=== PATIENT | female | born 1990 | race Hispanic/Latino ===

== ENCOUNTER 2017-12-26 08:41 | Emergency (ER) | payer OTHER | END 2017-12-26 10:06 | disposition home or self-care (01) | LOC: EDH 08:41 | DX: J10.1 Influenza due to other identified influenza virus with other respiratory manifestations (principal); F41.9 Anxiety disorder, unspecified ==

== ENCOUNTER 2023-06-23 22:55 | Inpatient (IN) | payer OTHER ==
[~2023-06-23] VITALS: Ht 157.5 cm; Wt 91.2 kg
[2023-06-23 23:38] LABS: BASOPHILS # (AUTO) 0.03 K/uL (0.00-0.20); BASOPHILS % (AUTO) 0.2 % (0.0-5.0); EOSINOPHILS # (AUTO) 0.01 K/uL (0.00-0.70); EOSINOPHILS % (AUTO) 0.1 % (0.0-8.0); HEMATOCRIT 37.2 % (36-48); IMMATURE GRANULOCYTE ABSOLUTE 0.12 K/uL (0-1); LYMPHOCYTES # (AUTO) 1.7 K/uL (1.0-4.8); LYMPHOCYTES % (AUTO) 11.3 % (21.0-51.0); MEAN CORPUSCULAR HEMOGLOBIN 31.1 pg (27.0-33.0); MEAN CORPUSCULAR HGB CONC 35.2 g/dL (32.0-36.0); MEAN CORPUSCULAR VOLUME 88.4 fL (79-99); MONOCYTES # (AUTO) 1.1 K/uL (0.1-1.0); MONOCYTES % (AUTO) 7.2 % (3.0-13.0); NEUTROPHILS # (AUTO) 11.9 K/uL (1.8-7.7); NEUTROPHILS % (AUTO) 80.4 % (40.0-77.0); PLATELET COUNT (AUTO) 302 K/uL (130-400); RED BLOOD CELL COUNT(AUTO) 4.21 MIL/uL (4.00-5.50); RED CELL DISTRIBUTION WIDTH 12.8 % (11.0-15.5); WHITE BLOOD COUNT (AUTO) 14.8 K/uL (4.8-10.8)
[2023-06-23 23:58] LABS: ALBUMIN 3.4 g/dL (3.5-5.0); BILIRUBIN,TOTAL 0.9 mg/dL (0.2-1.0); CREATININE 0.9 mg/dL (0.5-1.0); TOTAL PROTEIN, SERUM 6.4 g/dL (6.0-8.3)
[2023-06-24] VITALS (13 sets, daily range): BP systolic 109–152; BP diastolic 51–93; PULSE 52–75; RESP 12–24; O2SAT 98
[2023-06-24 00:08] LABS: POTASSIUM 2.9 mmol/L (3.5-5.1)
[2023-06-24] MEDS: POTASSIUM BICARB/CIT AC 25 MEQ TABLET.EFF PO ONE (01:07)
[2023-06-24] MEDS: FENTANYL CITRATE PF 50 MCG/1 ML 2ML VIAL IVP ONE (01:07)
[2023-06-24] MEDS: DICYCLOMINE 20MG (10MG/ML) AMP IM ONE (01:08)
[2023-06-24] MEDS: HALOPERIDOL INJ 5 MG/ML VIAL IM SCH (02:16)
[2023-06-24] MEDS ORDERED: HYDRALAZINE 20MG/ML VIAL IV PRN (03:00)
[2023-06-24] MEDS: LACTATED RINGERS 1000ML 1,000 ML IV SCH ×2 (03:18→10:00)
[2023-06-24] MEDS: ONDANSETRON 4MG INJ IVP ONE (03:18)
[2023-06-24 03:23] LABS: APPEARANCE,URINE CLOUDY (CLEAR); BILIRUBIN,URINE NEGATIVE (NEGATIVE); COLOR,URINE LIGHT-YELLOW (YELLOW); GLUCOSE, URINE (UA) NEGATIVE (NEGATIVE); KETONES,URINE 60 mg/dL (NEGATIVE); LEUKOCYTE ESTERASE ,URINE 500 Leu/uL (NEGATIVE); NITRATE,URINE NEGATIVE (NEGATIVE); PH,URINE 7.5 (5.0-8.0); PROTEIN,URINE NEGATIVE (NEGATIVE); UROBILINOGEN,URINE 0.2 mg/dL (0.2-1.0)
[2023-06-24 03:25] LABS: ADD UA MICROSCOPIC YES
[2023-06-24 03:26] LABS: BACTERIA,URINE MOD /HPF (None Seen); MUCUS,URINE RARE LPF (None Seen); SQUAMOUS EPITHELIAL CELL,UR MOD /HPF (0-2)
[2023-06-24 03:28] LABS: HCG,QUALITATIVE URINE NEGATIVE (NEGATIVE)
[2023-06-24 03:32] LABS: AMPHET/METH SCREEN,URINE NEGATIVE (NEGATIVE); BARBITURATE SCREEN, URINE NEGATIVE (NEGATIVE); BENZODIAZEPINES SCREEN,URINE POSITIVE (NEGATIVE); CANNABINOID SCREEN,URINE POSITIVE (NEGATIVE); COCAINE SCREEN,URINE POSITIVE (NEGATIVE); OPIATE SCREEN,URINE NEGATIVE (NEGATIVE); PHENCYCLIDINE SCREEN,URINE NEGATIVE (NEGATIVE)
[2023-06-24 03:35] LABS: INR <= 0.93 (0.85-1.15)
[2023-06-24] MEDS: CEFTRIAXONE 1G VIAL IVPB SCH (04:32)
[2023-06-24] MEDS: FAMOTIDINE 20MG VIAL IV SCH (07:57)
[2023-06-24] MEDS: ENOXAPARIN SODIUM 40 MG/0.4 ML SYRINGE SQ SCH (07:57)
[2023-06-24 08:04] LABS: HEMOGLOBIN A1C 5.3 % (4.0-6.0)
[2023-06-24 08:27] LABS: ALBUMIN 2.9 g/dL (3.5-5.0); BILIRUBIN,TOTAL 0.6 mg/dL (0.2-1.0); CREATININE 0.7 mg/dL (0.5-1.0); MAGNESIUM 1.9 mg/dL (1.80-2.40); POTASSIUM 3.3 mmol/L (3.5-5.1); THYROID STIMULATING HORMONE 0.69 uIU/mL (0.36-3.74); TOTAL PROTEIN, SERUM 5.7 g/dL (6.0-8.3)
[2023-06-24 08:41] LABS: BASOPHILS # (AUTO) 0.02 K/uL (0.00-0.20); BASOPHILS % (AUTO) 0.2 % (0.0-5.0); EOSINOPHILS # (AUTO) 0.01 K/uL (0.00-0.70); EOSINOPHILS % (AUTO) 0.1 % (0.0-8.0); HEMATOCRIT 30.9 % (36-48); LYMPHOCYTES # (AUTO) 1.5 K/uL (1.0-4.8); MEAN CORPUSCULAR HEMOGLOBIN 32.6 pg (27.0-33.0); MEAN CORPUSCULAR HGB CONC 37.2 g/dL (32.0-36.0); MEAN CORPUSCULAR VOLUME 87.5 fL (79-99); MONOCYTES % (AUTO) 7.4 % (3.0-13.0); NEUTROPHILS # (AUTO) 10.8 K/uL (1.8-7.7); NEUTROPHILS % (AUTO) 80.5 % (40.0-77.0); PLATELET COUNT (AUTO) 381 K/uL (130-400); RED BLOOD CELL COUNT(AUTO) 3.53 MIL/uL (4.00-5.50); RED CELL DISTRIBUTION WIDTH 13.1 % (11.0-15.5); WHITE BLOOD COUNT (AUTO) 13.3 K/uL (4.8-10.8)
[2023-06-24] MEDS: ONDANSETRON 4MG INJ IV PRN (08:54)
[2023-06-24] MEDS: NITROGLYCERIN 0.4 MG SL TAB SL PRN (08:54)
[2023-06-24] MEDS: MORPHINE 2 MG SYG IVP PRN (08:55)
[2023-06-24] MEDS ORDERED: ENOXAPARIN SODIUM 60 MG/0.6 ML SQ SCH (09:00)
[2023-06-24] MEDS: POTASSIUM CHLORIDE 20MEQ/100ML 100 ML IV PRN (09:37)
[2023-06-24] MEDS: MAGNESIUM 2GM PREMIX 50ML 50 ML IV PRN (09:38)
[2023-06-24] MEDS ORDERED: 0.9%NACL 50ML IV SCH (10:00)
[2023-06-24] MEDS ORDERED: DICY20TA3 PO (10:17)
[2023-06-24] MEDS ORDERED: ONDA4VIA22 IJ (10:17)
[2023-06-24] MEDS ORDERED: FAMO20TA8 PO (10:18)
[2023-06-24] MEDS: ZOSYN 3.375GM +NS 50ML IVPB SCH (11:34)
[2023-06-24] MEDS: ACETAMINOPHEN 500 MG TABLET PO PRN (17:58)
[2023-06-24] MEDS: LORAZEPAM 2 MG/ML 1 ML VIAL IVP ONE (22:08)
[2023-06-25] VITALS (7 sets, daily range): BP systolic 112–152; BP diastolic 59–82; PULSE 56–75; RESP 18–22; O2SAT 98
[2023-06-25 05:20] LABS: BASOPHILS # (AUTO) 0.04 K/uL (0.00-0.20); BASOPHILS % (AUTO) 0.6 % (0.0-5.0); EOSINOPHILS # (AUTO) 0.15 K/uL (0.00-0.70); EOSINOPHILS % (AUTO) 2.4 % (0.0-8.0); HEMATOCRIT 32.8 % (36-48); IMMATURE GRANULOCYTE ABSOLUTE 0.04 K/uL (0-1); LYMPHOCYTES # (AUTO) 1.3 K/uL (1.0-4.8); LYMPHOCYTES % (AUTO) 21.1 % (21.0-51.0); MEAN CORPUSCULAR HEMOGLOBIN 31.4 pg (27.0-33.0); MEAN CORPUSCULAR HGB CONC 34.5 g/dL (32.0-36.0); MEAN CORPUSCULAR VOLUME 91.1 fL (79-99); MONOCYTES # (AUTO) 0.5 K/uL (0.1-1.0); MONOCYTES % (AUTO) 8.1 % (3.0-13.0); NEUTROPHILS # (AUTO) 4.2 K/uL (1.8-7.7); NEUTROPHILS % (AUTO) 67.2 % (40.0-77.0); PLATELET COUNT (AUTO) 190 K/uL (130-400); RED CELL DISTRIBUTION WIDTH 12.6 % (11.0-15.5); WHITE BLOOD COUNT (AUTO) 6.3 K/uL (4.8-10.8)
[2023-06-25 05:52] LABS: ALBUMIN 2.7 g/dL (3.5-5.0); BILIRUBIN,TOTAL 0.9 mg/dL (0.2-1.0); CREATININE 0.9 mg/dL (0.5-1.0); POTASSIUM 3.1 mmol/L (3.5-5.1); TOTAL PROTEIN, SERUM 5.4 g/dL (6.0-8.3)
[2023-06-25] MEDS: LORAZEPAM 2 MG/ML 1 ML VIAL IVP STA (06:01)
[2023-06-25] MEDS ORDERED: POTASSIUM CHLORIDE 10% ELIXIR 20 MEQ/15 ML UDCUP PO PRN (10:30)
[2023-06-25] MEDS ORDERED: POTASSIUM CHLORIDE 20MEQ/100ML 100 ML IV PRN (10:30)
[2023-06-25] MEDS ORDERED: MAGNESIUM 2GM PREMIX 50ML 50 ML IV PRN (10:30)
[2023-06-25] MEDS ORDERED: PHARMACY COMMUNICATION MISC PRN (12:30)
[2023-06-25] MEDS: LORAZEPAM 2 MG/ML 1 ML VIAL IVP ONE (12:33)
[2023-06-25] MEDS: LORAZEPAM 2 MG/ML 1 ML VIAL IVP PRN (15:39)
[2023-06-25] MEDS: KETOROLAC 15MG/ML VIAL (15MG/ML) IM PRN (18:22)
[2023-06-26] VITALS (7 sets, daily range): BP systolic 118–136; BP diastolic 58–86; PULSE 55–75; RESP 18–20; O2SAT 98
[2023-06-26 05:38] LABS: BASOPHILS # (AUTO) 0.03 K/uL (0.00-0.20); BASOPHILS % (AUTO) 0.4 % (0.0-5.0); EOSINOPHILS # (AUTO) 0.12 K/uL (0.00-0.70); EOSINOPHILS % (AUTO) 1.8 % (0.0-8.0); HEMATOCRIT 32.4 % (36-48); IMMATURE GRANULOCYTE ABSOLUTE 0.04 K/uL (0-1); LYMPHOCYTES # (AUTO) 2.1 K/uL (1.0-4.8); LYMPHOCYTES % (AUTO) 31.1 % (21.0-51.0); MEAN CORPUSCULAR HGB CONC 35.5 g/dL (32.0-36.0); MEAN CORPUSCULAR VOLUME 87.3 fL (79-99); MONOCYTES # (AUTO) 0.6 K/uL (0.1-1.0); MONOCYTES % (AUTO) 8.8 % (3.0-13.0); NEUTROPHILS # (AUTO) 3.9 K/uL (1.8-7.7); NEUTROPHILS % (AUTO) 57.3 % (40.0-77.0); PLATELET COUNT (AUTO) 227 K/uL (130-400); RED BLOOD CELL COUNT(AUTO) 3.71 MIL/uL (4.00-5.50); RED CELL DISTRIBUTION WIDTH 12.2 % (11.0-15.5); WHITE BLOOD COUNT (AUTO) 6.8 K/uL (4.8-10.8)
[2023-06-26 05:54] LABS: ALBUMIN 2.7 g/dL (3.5-5.0); BILIRUBIN,TOTAL 0.6 mg/dL (0.2-1.0); CREATININE 0.8 mg/dL (0.5-1.0); MAGNESIUM 2.1 mg/dL (1.80-2.40); TOTAL PROTEIN, SERUM 5.6 g/dL (6.0-8.3)
[2023-06-26] MEDS: KCL 20 MEQ ERTAB PO PRN (06:10)
[2023-06-26] MEDS: METOCLOPRAMIDE 10 MG/2 ML VIAL IVP PRN (20:37)
[2023-06-27] VITALS: BP 118/66; PULSE 65; RESP 18
[2023-06-27 04:00] VITALS: BP 122/64; PULSE 65; RESP 18
[2023-06-27 04:41] LABS: HEMATOCRIT 33.7 % (36-48); MEAN CORPUSCULAR HEMOGLOBIN 31.3 pg (27.0-33.0); MEAN CORPUSCULAR VOLUME 89.4 fL (79-99); RED BLOOD CELL COUNT(AUTO) 3.77 MIL/uL (4.00-5.50); RED CELL DISTRIBUTION WIDTH 12.2 % (11.0-15.5); WHITE BLOOD COUNT (AUTO) 8.6 K/uL (4.8-10.8)
[2023-06-27 04:57] LABS: CREATININE 0.9 mg/dL (0.5-1.0); POTASSIUM 3.8 mmol/L (3.5-5.1)
[2023-06-27 08:00] VITALS: BP 106/54; PULSE 60; RESP 19
[2023-06-27 10:10] VITALS: O2SAT 100
[2023-06-27 11:55] VITALS: BP 128/79; PULSE 56; RESP 19
[2023-06-27] MEDS ORDERED: CEPH500B PO (13:20)
== END 2023-06-27 17:30 | disposition home or self-care (01) | DRG 444 ==
LOC: EDH 22:55 → EDHIP 06-24 02:53 → 2CH 06-24 06:45 → 4CH 06-24 23:15
PROVIDERS: ADMIT Hospitalist; ATTEND Hospitalist
DX: K80.20 Calculus of gallbladder without cholecystitis without obstruction (principal); G92.8 Other toxic encephalopathy; F10.239 Alcohol dependence with withdrawal, unspecified; N30.00 Acute cystitis without hematuria; E87.6 Hypokalemia; E66.01 Morbid (severe) obesity due to excess calories; R73.9 Hyperglycemia, unspecified; F19.10 Other psychoactive substance abuse, uncomplicated; I10 Essential (primary) hypertension; F10.20 Alcohol dependence, uncomplicated; F41.9 Anxiety disorder, unspecified; K76.0 Fatty (change of) liver, not elsewhere classified; G43.909 Migraine, unspecified, not intractable, without status migrainosus; Z68.36 Body mass index [BMI] 36.0-36.9, adult; Z79.899 Other long term (current) drug therapy
CPT/HCPCS: 36415; 76705; 78226; 80048; 80053; 80061; 80305; 81001; 81025; 82330; 82550; 83036; 83690; 83735; 84443; 84484; 85025; 85027; 85610; 85730; 87088; 93005; 93306; 93356; A9537; G0378; J0500; J1630; J1650; J1885; J2060; J2270; J2405; J2543; J2765; J3010; J3475; J3480; J3490

== ENCOUNTER 2024-04-14 17:50 | Emergency (ER) | payer SELFPAY ==
[~2024-04-14] VITALS: Ht 157.5 cm; Wt 127.0 kg
[~2024-04-14 17:50] MED LIST: CEPH500B PO; DICY20TA3 PO; FAMO20TA8 PO; ONDA4VIA22 IJ
[2024-04-14 18:18] LABS: BASOPHILS # (AUTO) 0.05 K/uL (0.00-0.20); BASOPHILS % (AUTO) 0.2 % (0.0-5.0); EOSINOPHILS # (AUTO) 0.03 K/uL (0.00-0.70); EOSINOPHILS % (AUTO) 0.1 % (0.0-8.0); HEMATOCRIT 38.2 % (36-48); IMMATURE GRANULOCYTE ABSOLUTE 0.13 K/uL (0-1); LYMPHOCYTES # (AUTO) 0.8 K/uL (1.0-4.8); LYMPHOCYTES % (AUTO) 3.5 % (21.0-51.0); MEAN CORPUSCULAR HEMOGLOBIN 31.2 pg (27.0-33.0); MEAN CORPUSCULAR HGB CONC 34.6 g/dL (32.0-36.0); MEAN CORPUSCULAR VOLUME 90.3 fL (79-99); MONOCYTES # (AUTO) 1.1 K/uL (0.1-1.0); MONOCYTES % (AUTO) 4.6 % (3.0-13.0); NEUTROPHILS # (AUTO) 20.9 K/uL (1.8-7.7); PLATELET COUNT (AUTO) 334 K/uL (130-400); RED BLOOD CELL COUNT(AUTO) 4.23 MIL/uL (4.00-5.50); RED CELL DISTRIBUTION WIDTH 12.5 % (11.0-15.5)
[2024-04-14 18:26] LABS: POTASSIUM 3.5 mmol/L (3.5-5.1)
[2024-04-14] MEDS: LIDOCAINE HCL 2% VISCOUS 15 ML UDCUP PO ONE (18:28)
[2024-04-14] MEDS: PANTOPrazole 40 MG/VIAL IVP ONE (18:28)
[2024-04-14] MEDS: ondanSETRON ODT 4MG TAB SL ONE (18:29)
[2024-04-14 18:39] LABS: ALBUMIN 3.6 g/dL (3.5-5.0); BILIRUBIN,TOTAL 0.8 mg/dL (0.2-1.0); TOTAL PROTEIN, SERUM 6.7 g/dL (6.0-8.3)
[2024-04-14 19:08] LABS: APPEARANCE,URINE CLOUDY (CLEAR); BILIRUBIN,URINE NEGATIVE (NEGATIVE); COLOR,URINE LIGHT-YELLOW (YELLOW); GLUCOSE, URINE (UA) NEGATIVE (NEGATIVE); KETONES,URINE 150 mg/dL (NEGATIVE); LEUKOCYTE ESTERASE ,URINE NEGATIVE Leu/uL (NEGATIVE); NITRATE,URINE NEGATIVE (NEGATIVE); OCCULT BLOOD,URINE NEGATIVE (NEGATIVE); PH,URINE 7.5 (5.0-8.0); PROTEIN,URINE 30 mg/dL (NEGATIVE); UROBILINOGEN,URINE 0.2 mg/dL (0.2-1.0)
--- NOTE | 2024-04-14 19:09 | NUR ---
PT CARE ASSUMED AT THIS TIME
[2024-04-14 19:13] LABS: BACTERIA,URINE RARE /HPF (None Seen); OTHER CASTS, URINE 1 /LPF (None Seen); SQUAMOUS EPITHELIAL CELL,UR FEW /HPF (0-2); YEAST,URINE BUDDING RARE /HPF (None Seen)
[2024-04-14 19:15] LABS: AMPHET/METH SCREEN,URINE NEGATIVE (NEGATIVE); BARBITURATE SCREEN, URINE NEGATIVE (NEGATIVE); BENZODIAZEPINES SCREEN,URINE NEGATIVE (NEGATIVE); CANNABINOID SCREEN,URINE POSITIVE (NEGATIVE); COCAINE SCREEN,URINE POSITIVE (NEGATIVE); OPIATE SCREEN,URINE NEGATIVE (NEGATIVE); PHENCYCLIDINE SCREEN,URINE NEGATIVE (NEGATIVE)
[2024-04-14] MEDS: MAG/ALUM/SIMETH 30 ML UDCUP PO ONE (19:26)
[2024-04-14] MEDS ORDERED: IOHEXOL 350 MG/ML 100ML INFUS..BTL IV ONE (19:32)
--- NOTE | 2024-04-14 20:01 | HMCIMG ---
CT ABDOMEN WITH CONTRAST. CT PELVIS WITH CONTRAST INDICATION: Severe nausea and vomiting after illegal drugs use TECHNIQUE: Routine transaxial images using 5 mm slice thickness were obtained after the intravenous infusion of 100 mL of Omnipaque 350 without adverse effects. Oral contrast was not administered. Rectal contrast was not administered. Coronal and sagittal reformatted images acquired for interpretation. CT was performed with one or more of the following dose reduction techniques: Automated exposure control, adjustment of the mA and/or kV according to patient size, or use of iterative reconstruction technique. COMPARISON: None FINDINGS: ABDOMEN: Heart size is normal. Visible lung bases are clear. The liver is normal in size and smooth in contour without lesions or biliary duct dilation. The spleen is normal in size without lesions. The gallbladder appears normal. The pancreas appears normal without pancreatic duct dilation. The adrenal glands appear normal. Both kidneys appear unremarkable. Cortical nephrograms are symmetric and normal in appearance bilaterally. No evidence for intra-abdominal free air or organized fluid collection. No retrocrural, intraabdominal, or retroperitoneal lymphadenopathy identified. No aortic aneurysmal dilation or dissection identified. PELVIS: No evidence for free air or organized pelvic fluid collection. No significant pelvic adenopathy detected. Visualized small and large bowel loops appear unremarkable. Terminal ileum appears normal. The appendix appears normal. The urinary bladder appears unremarkable. 2.0 cm left ovarian cyst. Bilateral fallopian tube hardware. Visible osseous structures are intact. IMPRESSION: No evidence for any acute intra-abdominal or pelvic process. Additional minor findings and pertinent negatives as reported.
[2024-04-14] MEDS: 0.9%NACL 1000ML 1,000 ML IV ONE (20:29)
[2024-04-14] MEDS: metoCLOPRAmide 10 MG/2 ML VIAL IVP ONE (20:29)
[2024-04-14] MEDS ORDERED: metoCLOPRAmide 10 MG/2 ML VIAL IM ONE (20:30)
--- NOTE | 2024-04-14 20:30 | ERN ---
General Chief Complaint: Abdominal Pain Stated Complaint: abd pain Time Seen by MD: 17:51 Time Seen by Midlevel: 17:51 Source: patient History of Present Illness Initial Comments 33-year-old female who presents to the emergency department by EMS due to abdominal pain onset this morning. Patient reports nausea, multiple episodes of vomiting, but denies any fever, dysuria or further associated symptoms. Patient reports she has a history of gallstones. Allergies: Coded Allergies: No Known Drug Allergies (Unverified Allergy, Unknown, 06/23/23) Home Meds Active Scripts Cephalexin Monohydrate (Keflex) 500 Mg Cap, 500 MG PO BID, #4 CAP 0 Refills Prov:GURMEET LOERA Eulalia AGPCNP 06/27/23 Reported Medications Famotidine (Famotidine) 20 Mg Tablet, 20 MG PO BID, TAB 06/24/23 Dicyclomine HCl (Dicyclomine HCl) 20 Mg Tablet, 20 MG PO QID for ABD PAIN, TAB 06/24/23 Ondansetron HCl/Pf (Ondansetron HCl 4 mg/2 ml Vial) 4 Mg/2 Ml Vial, 4 MG IJ Q8 for NAUSEA, VIAL 06/24/23 Past Medical History Past Medical History: Anxiety Medical History Other: GALLSTONES Past Surgical History: None Family History Family History: Negative Social History Social History: Negative, Lives with family ROS Dictation Constitutional: Negative for fever,chills, and weight loss Eyes: Negative for injury, pain,redness, and discharge ENT: Negative for injury,pain or swelling Cardiovascular: Negative for chest pain, palpitations, and edema Respiratory: Negative for shortness of breath, cough, and wheezing, Abdomen/GI: Positive for abdominal pain, nausea, vomiting Negative for diarrhea, and constipation Back: Negative for injury and pain : Negative for painful urination, bleeding or discharge MS/Extremity: Negative for injury and deformity Skin: Negative for rash, and discoloration Neuro: Negative for headache, weakness, numbness, tingling, and seizure Psych: Negative for suicide ideation, homicidal ideation, and hallucinations Physical Exam Physical Exam Dictation General: awake, alert, no acute distress Head/Face: Normocephalic, atraumatic Eyes: PERRL, EOMI, normal conjunctiva ENT: oral cavity clear, oral mucosa moist Neck: Normal range of motion, supple Cardiovascular: RRR, normal S1/S2 Respiratory: CTAB, no respiratory distress, no rales or wheezes Abdomen: Soft, mild epigastric tenderness, non-distended, no guarding or rebound. Skin: Warm, dry, normal turgor, no rash MS/Extremity: Pulses equal, no cyanosis, neurovascular intact, FROM Neuro: COAx4, GCS 15, no neurological deficits, normal gait Psych: Normal behavior, mood, and affect normal Results Laboratory and Microbiology Lab and Micro Result Laboratory Tests Test 04/14/24 18:09 04/14/24 19:00 White Blood Count 23.0 K/uL (4.8-10.8) H Red Blood Count 4.23 MIL/uL (4.00-5.50) Hemoglobin 13.2 g/dL (12.0-16.0) Hematocrit 38.2 % (36-48) Mean Corpuscular Volume 90.3 fL (79-99) Mean Corpuscular Hemoglobin 31.2 pg (27.0-33.0) Mean Corpuscular Hemoglobin Concent 34.6 g/dL (32.0-36.0) Red Cell Distribution Width 12.5 % (11.0-15.5) Platelet Count 334 K/uL (130-400) Mean Platelet Volume 8.4 fL (7.5-10.5) Immature Granulocyte % (Auto) 0.6 % (0-1) Neutrophils (%) (Auto) 91.0 % (40.0-77.0) H Lymphocytes (%) (Auto) 3.5 % (21.0-51.0) L Monocytes (%) (Auto) 4.6 % (3.0-13.0) Eosinophils (%) (Auto) 0.1 % (0.0-8.0) Basophils (%) (Auto) 0.2 % (0.0-5.0) Neutrophils # (Auto) 20.9 K/uL (1.8-7.7) H Lymphocytes # (Auto) 0.8 K/uL (1.0-4.8) L Monocytes # (Auto) 1.1 K/uL (0.1-1.0) H Eosinophils # (Auto) 0.03 K/uL (0.00-0.70) Basophils # (Auto) 0.05 K/uL (0.00-0.20) Absolute Immature Granulocyte (auto 0.13 K/uL (0-1) Nucleated Red Blood Cells 0.0 % (0.0-0.19) White Cell Morphology Comment See comments Sodium Level 137 mmol/L (136-145) Potassium Level 3.5 mmol/L (3.5-5.1) Chloride Level 102 mmol/L (101-111) Carbon Dioxide Level 17 mmol/L (21-32) L Blood Urea Nitrogen 6 mg/dL (7-18) L Creatinine 1.0 mg/dL (0.5-1.0) Glomerular Filtration Rate Calc 75 mL/min (>90) Random Glucose 134 mg/dL (70-105) H Total Calcium 8.4 mg/dL (8.5-10.1) L Total Bilirubin 0.8 mg/dL (0.2-1.0) Aspartate Amino Transf (AST/SGOT) 17 U/L (10-37) Alanine Aminotransferase (ALT/SGPT) 28 U/L (12-78) Alkaline Phosphatase 52 U/L (50-136) Total Protein 6.7 g/dL (6.0-8.3) Albumin 3.6 g/dL (3.5-5.0) Lipase 24 U/L (16-77) Urine Color LIGHT-YELLOW (YELLOW) Urine Appearance CLOUDY (CLEAR) H Urine pH 7.5 (5.0-8.0) Urine Specific [place] 1.025 (1.001-1.031) Urine Protein 30 mg/dL (NEGATIVE) H Urine Glucose (UA) NEGATIVE mg/dL (NEGATIVE) Urine Ketones 150 mg/dL (NEGATIVE) H Urine Occult Blood NEGATIVE (NEGATIVE) Urine Nitrate NEGATIVE (NEGATIVE) Urine Bilirubin NEGATIVE mg/dL (NEGATIVE) Urine Urobilinogen 0.2 mg/dL (0.2-1.0) Urine Leukocyte Esterase NEGATIVE Razia/uL Urine RBC 6-10 /HPF (0-1) H Urine WBC 2-5 /HPF (0-1) H Urine Squamous Epithelial Cells FEW /HPF (0-2) Urine Bacteria RARE /HPF (None Seen) Urine Other Casts 1 /LPF (None Seen) Urine Yeast RARE /HPF (None Seen) Urine HCG, Qualitative NEGATIVE (NEGATIVE) Urine Opiates Screen NEGATIVE (NEGATIVE) Urine Barbiturates Screen NEGATIVE (NEGATIVE) Urine Phencyclidine Screen NEGATIVE (NEGATIVE) Urine Amphetamines Screen NEGATIVE (NEGATIVE) Urine Benzodiazepines Screen NEGATIVE (NEGATIVE) Urine Cocaine Screen POSITIVE (NEGATIVE) H Urine Marijuana (THC) Screen POSITIVE (NEGATIVE) H Labs Reviewed?: Yes EKG/XRAY/US/CT/MRI CT Scan Comment REASON: Abdominal pain ORDERING PHYSICIAN: SARAH FARFAN PROCEDURE: ABD PEL W - CT ABDOMEN/PELVIS W/CONTRAST CT ABDOMEN WITH CONTRAST. CT PELVIS WITH CONTRAST INDICATION: Severe nausea and vomiting after illegal drugs use TECHNIQUE: Routine transaxial images using 5 mm slice thickness were obtained after the intravenous infusion of 100 mL of Omnipaque 350 without adverse effects. Oral contrast was not administered. Rectal contrast was not administered. Coronal and sagittal reformatted images acquired for interpretation. CT was performed with one or more of the following dose reduction techniques: Automated exposure control, adjustment of the mA and/or kV according to patient size, or use of iterative reconstruction technique. COMPARISON: None FINDINGS: ABDOMEN: Heart size is normal. Visible lung bases are clear. The liver is normal in size and smooth in contour without lesions or biliary duct dilation. The spleen is normal in size without lesions. The gallbladder appears normal. The pancreas appears normal without pancreatic duct dilation. The adrenal glands appear normal. Both kidneys appear unremarkable. Cortical nephrograms are symmetric and normal in appearance bilaterally. No evidence for intra-abdominal free air or organized fluid collection. No retrocrural, intraabdominal, or retroperitoneal lymphadenopathy identified. No aortic aneurysmal dilation or dissection identified. PELVIS: No evidence for free air or organized pelvic fluid collection. No significant pelvic adenopathy detected. Visualized small and large bowel loops appear unremarkable. Terminal ileum appears normal. The appendix appears normal. The urinary bladder appears unremarkable. 2.0 cm left ovarian cyst. Bilateral fallopian tube hardware. Visible osseous structures are intact. IMPRESSION: No evidence for any acute intra-abdominal or pelvic process. Additional minor findings and pertinent negatives as reported. DICTATED BY: FREDDIE RYAN MD DATE: 04/14/241953 [facility] MDM: Differential diagnosis: Hyperemesis, cholelithiasis, cholecystitis, gastritis, acid reflux Rationale:33-year-old female who presents to the emergency department by EMS due to abdominal pain onset this morning. Patient reports nausea, multiple episodes of vomiting, but denies any fever, dysuria or further associated symptoms. Patient reports she has a history of gallstones. Labs obtained indicate elevated WBC, normal hepatic function, normal lipase. UA negative for urinary tract infection. Drug screen positive for cocaine and marijuana, patient verbalized last use was yesterday. CT abdomen and pelvis indicates 2 cm left ovarian cyst otherwise no acute intra-abdominal abnormalities noted. Patient was administered GI cocktail, Zofran, Reglan, morphine, and IV fluids in the ED. Patient was educated on findings and diagnosis. Advised to follow up with PCP. Return to the emergency department if any worsening symptoms. Patient verbalized understanding. Patient stable for discharge. There are no social concerns with this patient. I independently interpreted the test that were performed, results were reviewed by me and considered findings on radiology if ordered. Medical management and examination interpretation discussions were had by me with other qualified healthcare professionals as indicated for the patient's care. ED Course Orders Procedure Category Date Status Time Cbc With Differential LAB 04/14/24 Complete 17:58 Comprehensive LAB 04/14/24 Complete Metabolic Panel 17:58 Lipase LAB 04/14/24 Complete 17:58 Urinalysis LAB 04/14/24 Complete W/Microscopic 17:58 Drug Screen Urine LAB 04/14/24 Complete 17:58 Ondansetron Odt 4mg PHA 04/14/24 Complete Tab (Zofran 4mg Odt) 18:00 Mag/Alum/Simeth 30ml PHA 04/14/24 Complete (Maalox Plus 30ml) 18:00 Lidocaine Hcl 2% PHA 04/14/24 Complete Viscous (Lidocaine Hcl 18:00 Pantoprazole 40mg Inj PHA 04/14/24 Complete (Protonix 40mg Inj 18:00 ,Urine Test LAB 04/14/24 Complete 17:59 12 Lead Ekg Tracing- EKG 04/14/24 Logged Technical 18:44 Ct Abdomen/Pelvis CT 04/14/24 Resulted W/Contrast 19:23 Iohexol (Omnipaque) PHA 04/14/24 Complete 19:32 Metoclopramide 10 PHA 04/14/24 Complete Mg/2 Ml Vial (Reglan 1 20:30 0.9%Nacl 1000ml (Ns PHA 04/14/24 Complete 1000ml) 20:30 Metoclopramide 10 PHA 04/14/24 Complete Mg/2 Ml Vial (Reglan 1 20:30 Morphine 2mg Syg PHA 04/14/24 Complete (Morphine 2mg Syg) 20:30 Current Medications Medications (Trade) Dose Ordered Sig/Mirza Route PRN Reason Start Time Stop Time Status Last Admin Dose Admin Al Hydroxide/Mg Hydroxide (MAALox PLUS 30ML) 30 ml ONCE ONCE PO 04/14/24 18:00 04/14/24 18:05 DC 04/14/24 19:26 Iohexol (Omnipaque) 35,000 mg STK-MED ONCE IV 04/14/24 19:32 04/14/24 19:32 DC Lidocaine HCl (Lidocaine HCl 2% Viscous) 10 ml ONCE ONCE PO 04/14/24 18:00 04/14/24 18:05 DC 04/14/24 18:28 Metoclopramide HCl (regLAN 10MG IV) 10 mg ONCE ONCE IM 04/14/24 20:30 04/14/24 20:23 DC Metoclopramide HCl (regLAN 10MG IV) 10 mg ONCE ONCE IVP 04/14/24 20:30 04/14/24 20:31 DC 04/14/24 20:29 Morphine Sulfate (morPHINE 2MG SYG) 2 mg ONCE ONCE IVP 04/14/24 20:30 04/14/24 20:31 DC 04/14/24 20:32 Ondansetron HCl (zoFRAN 4MG ODT) 4 mg ONCE ONCE SL 04/14/24 18:00 04/14/24 18:05 DC 04/14/24 18:29 Pantoprazole Sodium (PROTonix 40MG INJ) 20 mg ONCE ONCE IVP 04/14/24 18:00 04/14/24 18:05 DC 04/14/24 18:28 Sodium Chloride 1,000 ml @ 0 mls/hr ONCE ONCE IV 04/14/24 20:30 04/14/24 20:31 DC 04/14/24 20:29 Vital Signs Date Time Temp Pulse Resp B/P (MAP) Pulse Ox O2 Delivery O2 Flow Rate FiO2 04/14/24 19:18 98.4 87 19 143/ 100 Room Air* 0 21 04/14/24 17:51 98.6 78 19 144/92 99 Room Air DX & DISP Disposition: Discharge Departure Impression: Primary Impression: Cannabis hyperemesis syndrome concurrent with and due to cannabis abuse Additional Impression: Cocaine use Condition: Stable Additional Instructions: Discharge home. Rest. Follow up with primary care in 24 hours. Return to the ER for any acute changes or worsening symptoms. If any medications were prescribed take as directed. Okay to continue home medications unless otherwise discussed during your visit in the emergency room today. Patient was also advised to follow-up with primary care physician in 1 to 2 days for continued monitoring. Referrals: SELF,REFERRAL (PCP) I participated in the following activities of this patient's care: For this patient encounter, I reviewed the PA or DRY END TESTER documentation, treatment plan, and medical decision making. I did not have [id number] time with this patient. I will sign as the reviewing DrJuan And agree with the treatment plan and disposition. SARAH FARFAN Apr 14, 2024 20:30 MIRIAN SOLIS DO Apr 14, 2024 21:35
[2024-04-14] MEDS: morPHINE 2 MG SYG IVP ONE (20:32)
[2024-04-14 21:36] VITALS: BP 130/89; PULSE 81; RESP 19; TEMP 98.1; O2SAT 100
--- NOTE | 2024-04-15 07:01 | EKG ---
[facility] Test Date: 2024-04-14 Test Time: 18:43:17 Pat Name: ROSENDO ALONZO Department: ED Room: Gender: F Rn Gastroenterology: [id number] : 1990 Requested By: SARAH FARFAN Order Number: [id number] Reading MD: Irving Adams Measurements Intervals [place] Rate: 76 P: 46 [place]: 130 QRS: 68 QRSD: 99 T: 22 QT: 438 QTc: 492 Interpretive Statements Sinus rhythm Compared to ECG 06/24/2023 08:46:43 T-wave abnormality no longer present Electronically Signed On 04-15-2024 11:53:38 DATA LEAD by Irving Adams Please click the below link to view image of tracing.
== END 2024-04-14 21:45 | disposition home or self-care (01) ==
LOC: EDH 17:50
DX: R11.10 Vomiting, unspecified (principal); F12.10 Cannabis abuse, uncomplicated; F14.90 Cocaine use, unspecified, uncomplicated
CPT/HCPCS: 99285; 74177; 96374; 96375; 96361; 80053; 80305; 83690; 85025; 81025; 36415; 93005; 81001; J2270; J7030; J2470; J2765; Q9967

== ENCOUNTER 2024-04-22 09:45 | Emergency (ER) | payer SELFPAY ==
[~2024-04-22] VITALS: Ht 157.5 cm; Wt 93.0 kg
--- NOTE | 2024-04-22 10:10 | EKG ---
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
[2024-04-22] MEDS: HALOPERIDOL INJ 5 MG/ML VIAL IV STA (10:13)
[2024-04-22] MEDS: 0.9%NACL 1000ML 1,000 ML IV ONE (10:15)
[2024-04-22 10:16] LABS: BASOPHILS # (AUTO) 0.03 K/uL (0.00-0.20); BASOPHILS % (AUTO) 0.2 % (0.0-5.0); EOSINOPHILS # (AUTO) 0.11 K/uL (0.00-0.70); EOSINOPHILS % (AUTO) 0.8 % (0.0-8.0); HEMATOCRIT 36.9 % (36-48); IMMATURE GRANULOCYTE ABSOLUTE 0.07 K/uL (0-1); LYMPHOCYTES # (AUTO) 1.4 K/uL (1.0-4.8); LYMPHOCYTES % (AUTO) 10.4 % (21.0-51.0); MEAN CORPUSCULAR HEMOGLOBIN 30.9 pg (27.0-33.0); MEAN CORPUSCULAR HGB CONC 36.3 g/dL (32.0-36.0); MONOCYTES # (AUTO) 0.7 K/uL (0.1-1.0); MONOCYTES % (AUTO) 5.4 % (3.0-13.0); NEUTROPHILS # (AUTO) 11.3 K/uL (1.8-7.7); NEUTROPHILS % (AUTO) 82.7 % (40.0-77.0); PLATELET COUNT (AUTO) 305 K/uL (130-400); RED BLOOD CELL COUNT(AUTO) 4.34 MIL/uL (4.00-5.50); RED CELL DISTRIBUTION WIDTH 11.9 % (11.0-15.5); WHITE BLOOD COUNT (AUTO) 13.7 K/uL (4.8-10.8)
[2024-04-22 10:18] LABS: APPEARANCE,URINE TURBID (CLEAR); BILIRUBIN,URINE NEGATIVE (NEGATIVE); COLOR,URINE LIGHT-ORANGE (YELLOW); GLUCOSE, URINE (UA) NEGATIVE (NEGATIVE); KETONES,URINE >=80 mg/dL (NEGATIVE); LEUKOCYTE ESTERASE ,URINE 500 Leu/uL (NEGATIVE); NITRATE,URINE NEGATIVE (NEGATIVE); OCCULT BLOOD,URINE LARGE (NEGATIVE); PROTEIN,URINE 50 mg/dL (NEGATIVE); UROBILINOGEN,URINE 0.2 mg/dL (0.2-1.0)
[2024-04-22 10:20] LABS: ADD UA MICROSCOPIC YES
[2024-04-22 10:29] LABS: AMPHET/METH SCREEN,URINE NEGATIVE (NEGATIVE); BARBITURATE SCREEN, URINE NEGATIVE (NEGATIVE); BENZODIAZEPINES SCREEN,URINE POSITIVE (NEGATIVE); CANNABINOID SCREEN,URINE POSITIVE (NEGATIVE); COCAINE SCREEN,URINE POSITIVE (NEGATIVE); OPIATE SCREEN,URINE NEGATIVE (NEGATIVE); PHENCYCLIDINE SCREEN,URINE NEGATIVE (NEGATIVE)
[2024-04-22 10:30] LABS: BACTERIA,URINE MOD /HPF (None Seen); SQUAMOUS EPITHELIAL CELL,UR MANY /HPF (0-2); WBC CLUMP FEW /HPF (0-1); WBC,URINE 51-100 /HPF (0-1)
[2024-04-22] MEDS: PROMETHAZINE HCL 25 MG/ML 1ML AMPULE IM ONE (10:34)
--- NOTE | 2024-04-22 10:39 | ERN ---
ED Note History of Present Illness Stated Complaint: ABDOMINAL PAIN Chief Complaint: Abdominal Pain Time Seen by MD: 09:49 Dictation: 33-year-old female presents to the ED via EMS for evaluation of abdominal pain onset one week ago. EMS reports nausea, vomiting and diarrhea, but denies any other associated symptoms at this time. EMS states patient was sent over from [facility] for further evaluation and was administered 4 mg of zofran en route. Allergies: Coded Allergies: No Known Drug Allergies (Unverified Allergy, Unknown, 06/23/23) Home Meds Active Scripts Dicyclomine HCl (Bentyl) 20 Mg Tab, 1 TAB PO BID for irritable bowel symptoms for 10 Days, #20 TAB 0 Refills Prov:CUATE MARTINEZ MD 04/22/24 Cephalexin Monohydrate (Keflex) 500 Mg Cap, 500 MG PO BID, #4 CAP 0 Refills Prov:GURMEET LOERA AGPCNP 06/27/23 Reported Medications Famotidine (Famotidine) 20 Mg Tablet, 20 MG PO BID, TAB 06/24/23 Dicyclomine HCl (Dicyclomine HCl) 20 Mg Tablet, 20 MG PO QID for ABD PAIN, TAB 06/24/23 Ondansetron HCl/Pf (Ondansetron HCl 4 mg/2 ml Vial) 4 Mg/2 Ml Vial, 4 MG IJ Q8 for NAUSEA, VIAL 06/24/23 Past Medical History Past Medical History: Anxiety Additional Past Medical Hx: GALLSTONES Surgical History: None Family History: Negative Social History: Negative, Lives with family Review of System Dictation Constitutional: Negative for fever,chills, and weight loss Eyes: Negative for injury, pain,redness, and discharge ENT: Negative for injury,pain or swelling Cardiovascular: Negative for chest pain, palpitations, and edema Respiratory: Negative for shortness of breath, cough, and wheezing, Abdomen/GI: Positive for abdominal pain, nausea, vomiting, Negative for diarrhea, and constipation Back: Negative for injury and pain : Negative for injury, bleeding and discharge MS/Extremity: Negative for injury and deformity Skin: Negative for rash, and discoloration Neuro: Negative for headache, weakness, numbness, tingling, and seizure Psych: Negative for suicide ideation, homicidal ideation, and hallucinations Initial Vital Sign VS Vital Signs Date Time Temp Pulse Resp B/P (MAP) Pulse Ox O2 Delivery O2 Flow Rate FiO2 04/22/24 09:47 98.8 89 18 151/89 99 Room Air 0 04/22/24 10:00 21 Physical Exam Dictation General: awake, alert, NAD Head/Face: Normocephalic, atraumatic Eyes: PERRL, EOMI, vision at baseline ENT: oral cavity clear, TMs clear, no signs of infection Neck: Trachea midline, supple, no nuchal rigidity Cardiovascular: RRR, normal S1/S2, No MRGs, no JVD Respiratory: CTAB, no respiratory distress, No rales or wheezes Abdomen: Soft, non-tender, non-distended, normal bowel sounds, no guarding or rebound. Skin: Warm, dry, normal turgor, no rash MS/Extremity: Pulses equal, no cyanosis, neurovascular intact, FROM Neuro: COAx4, GCS 15, strength 5/5, CN 2-12 intact, normal cerebellar exam, norm al gait, Psych: Normal behavior, mood, and affect normal Results (Laboratory/Radiology) Laboratory/Radiology Laboratory Tests Test 04/22/24 09:58 04/22/24 10:01 Urine Color LIGHT-ORANGE (YELLOW) Urine Appearance TURBID (CLEAR) Urine pH 8.0 (5.0-8.0) Urine Specific [place] 1.013 (1.001-1.031) Urine Protein 50 mg/dL (NEGATIVE) H Urine Glucose (UA) NEGATIVE mg/dL (NEGATIVE) Urine Ketones >=80 mg/dL (NEGATIVE) Urine Occult Blood LARGE (NEGATIVE) H Urine Nitrate NEGATIVE (NEGATIVE) Urine Bilirubin NEGATIVE mg/dL (NEGATIVE) Urine Urobilinogen 0.2 mg/dL (0.2-1.0) Urine Leukocyte Esterase 500 Razia/uL (NEGATIVE) H Urine RBC 11-25 /HPF (0-1) H Urine WBC 51-100 /HPF (0-1) H Urine WBC Clumps (Auto) FEW /HPF (0-1) Urine Squamous Epithelial Cells MANY /HPF (0-2) Urine Amorphous Crystals (Auto) MANY /LPF (None Seen) Urine Bacteria MOD /HPF (None Seen) Urine Opiates Screen NEGATIVE (NEGATIVE) Urine Barbiturates Screen NEGATIVE (NEGATIVE) Urine Phencyclidine Screen NEGATIVE (NEGATIVE) Urine Amphetamines Screen NEGATIVE (NEGATIVE) Urine Benzodiazepines Screen POSITIVE (NEGATIVE) H Urine Cocaine Screen POSITIVE (NEGATIVE) H Urine Marijuana (THC) Screen POSITIVE (NEGATIVE) H White Blood Count 13.7 K/uL (4.8-10.8) H Red Blood Count 4.34 MIL/uL (4.00-5.50) Hemoglobin 13.4 g/dL (12.0-16.0) Hematocrit 36.9 % (36-48) Mean Corpuscular Volume 85.0 fL (79-99) Mean Corpuscular Hemoglobin 30.9 pg (27.0-33.0) Mean Corpuscular Hemoglobin Concent 36.3 g/dL (32.0-36.0) H Red Cell Distribution Width 11.9 % (11.0-15.5) Platelet Count 305 K/uL (130-400) Mean Platelet Volume 8.8 fL (7.5-10.5) Immature Granulocyte % (Auto) 0.5 % (0-1) Neutrophils (%) (Auto) 82.7 % (40.0-77.0) H Lymphocytes (%) (Auto) 10.4 % (21.0-51.0) L Monocytes (%) (Auto) 5.4 % (3.0-13.0) Eosinophils (%) (Auto) 0.8 % (0.0-8.0) Basophils (%) (Auto) 0.2 % (0.0-5.0) Neutrophils # (Auto) 11.3 K/uL (1.8-7.7) H Lymphocytes # (Auto) 1.4 K/uL (1.0-4.8) Monocytes # (Auto) 0.7 K/uL (0.1-1.0) Eosinophils # (Auto) 0.11 K/uL (0.00-0.70) Basophils # (Auto) 0.03 K/uL (0.00-0.20) Absolute Immature Granulocyte (auto 0.07 K/uL (0-1) Nucleated Red Blood Cells 0.0 % (0.0-0.19) Red Blood Cell Morphology ANISO 1+ Sodium Level 133 mmol/L (136-145) L Potassium Level 2.9 mmol/L (3.5-5.1) *L Chloride Level 98 mmol/L (101-111) L Carbon Dioxide Level 21 mmol/L (21-32) Blood Urea Nitrogen 6 mg/dL (7-18) L Creatinine 0.9 mg/dL (0.5-1.0) Glomerular Filtration Rate Calc 86 mL/min (>90) Random Glucose 121 mg/dL (70-105) H Total Calcium 8.4 mg/dL (8.5-10.1) L Total Bilirubin 0.9 mg/dL (0.2-1.0) Direct Bilirubin 0.2 mg/dL (0.0-0.3) Aspartate Amino Transf (AST/SGOT) 37 U/L (10-37) Alanine Aminotransferase (ALT/SGPT) 61 U/L (12-78) Alkaline Phosphatase 57 U/L (50-136) Total Creatine Kinase 126 U/L (21-232) # Total Protein 6.8 g/dL (6.0-8.3) Albumin 3.6 g/dL (3.5-5.0) Lipase 42 U/L (16-77) Serum Test, Qualitative NEGATIVE (NEGATIVE) Labs Reviewed?: Yes EKG Comment: EKG 04/22/2024 time 10:04 a.m. ventricular rate 70, NE 132, QRS D 100, QT 438. Sinus rhythm. No STEMI ED Course ED Course Orders Procedure Category Date Status Time 12 Lead Ekg Tracing- EKG 04/22/24 Complete Technical 09:49 Cbc With Differential LAB 04/22/24 Complete 09:49 Basic Metabolic Panel LAB 04/22/24 Complete 09:49 Creatine Kinase, Total LAB 04/22/24 Complete 09:49 Hepatic Function Panel LAB 04/22/24 Complete 09:49 Drug Screen Urine LAB 04/22/24 Complete 09:49 Lipase LAB 04/22/24 Complete 09:49 Testing, LAB 04/22/24 Complete Serum Hcg 09:49 Urinalysis Profile LAB 04/22/24 Complete 09:49 Haloperidol Inj PHA 04/22/24 Complete (Haldol Inj) 09:49 0.9%Nacl 1000ml (Ns PHA 04/22/24 Complete 1000ml) 10:00 Culture Urine PENNY 04/22/24 In Process 10:20 Promethazine Hcl PHA 04/22/24 Complete (Phenergan) 10:30 Haloperidol Inj PHA 04/22/24 Complete (Haldol Inj) 10:30 Potassium Chloride PHA 04/22/24 Complete 20meq Er (K-Dur/Klor- 11:30 Ceftriaxone 1g Vial PHA 04/22/24 Complete (Rocephine 1g Inj) 12:00 Lidocaine Hcl 2% PHA 04/22/24 Complete Viscous (Lidocaine Hcl 12:30 Dicyclomine Hcl PHA 04/22/24 Complete (Bentyl 10mg/5ml 12:30 Mag/Alum/Simeth 30ml PHA 04/22/24 Complete (Maalox Plus 30ml) 12:30 Lidocaine Hcl 2% PHA 04/22/24 Complete Viscous (Lidocaine Hcl 13:00 Compound Po Misc PHA 04/22/24 Complete (Compound Po Misc) 13:00 Mag/Alum/Simeth 30ml PHA 04/22/24 Complete (Maalox Plus 30ml) 13:00 Current Medications Medications (Trade) Dose Ordered Sig/Mirza Route PRN Reason Start Time Stop Time Status Last Admin Dose Admin Al Hydroxide/Mg Hydroxide (MAALox PLUS 30ML) 30 ml ONCE ONCE PO 04/22/24 12:30 04/22/24 12:47 DC Al Hydroxide/Mg Hydroxide (MAALox PLUS 30ML) 30 ml ONCE ONCE PO 04/22/24 13:00 04/22/24 13:01 DC 04/22/24 13:04 Ceftriaxone Sodium (ROCEphine 1G INJ) 1 gm ONCE ONCE IVPB 04/22/24 12:00 04/22/24 12:01 DC 04/22/24 12:02 Dicyclomine HCl (Bentyl 10mg/5ml Syrup) 20 mg ONCE ONCE PO 04/22/24 12:30 04/22/24 12:47 DC Haloperidol Lactate (Haldol Inj) 2 mg ONCE ONCE IV 04/22/24 10:30 04/22/24 10:31 DC 04/22/24 13:05 Haloperidol Lactate (Haldol Inj) 2 mg ONCE STAT IV 04/22/24 09:49 04/22/24 09:53 DC 04/22/24 10:13 Lidocaine HCl (Lidocaine HCl 2% Viscous) 30 ml ONCE ONCE PO 04/22/24 12:30 04/22/24 12:47 DC Lidocaine HCl/Al Hydroxide/Mg Hydroxide/ Dicyclomine HCl 20ML OR AD Q6H PRN PO INDIGESTION 04/22/24 13:00 04/22/24 12:47 DC Potassium Chloride (K-Dur/Klor-Con 20meq) 40 meq ONCE ONCE PO 04/22/24 11:30 04/22/24 11:31 DC 04/22/24 11:36 Promethazine HCl (Phenergan) 12.5 mg ONCE ONCE IM 04/22/24 10:30 04/22/24 10:31 DC 04/22/24 10:34 Sodium Chloride 1,000 ml @ 0 mls/hr ONCE ONCE IV 04/22/24 10:00 04/22/24 10:01 DC 04/22/24 10:15 Vital Signs Date Time Temp Pulse Resp B/P (MAP) Pulse Ox O2 Delivery O2 Flow Rate FiO2 04/22/24 14:06 97.5 60 18 165/97 99 Room Air* 0 21 04/22/24 10:00 97.5 60 18 140/63 100 Room Air* 0 21 04/22/24 09:47 98.8 89 18 151/89 99 Room Air 0 Medical Decision Making MDM MDM: Differential diagnosis: Gastroenteritis, dehydration, cannabis hyperemesis Rationale: Tests considered and ordered secondary to shared decision making include: labs, ECG and radiology Risk of complication and/or morbidity or mortality of patient management: None Medications-Per medication reconciliation Need for hospitalization: Patient does meet criteria for hospitalization. Need for emergency major/minor surgery: No There are no social concerns with this patient. Prescription drug management Prescriptions will include symptomatic care I independently interpreted the test that were performed, results were reviewed by me and considered findings on radiology if ordered. Medical management and examination interpretation discussions were had by me with other qualified healthcare professionals as indicated for the patient's care. DX & DISP Disposition: Discharge Departure Impression: Primary Impression: Cannabis hyperemesis syndrome concurrent with and due to cannabis abuse Additional Impressions: Intractable vomiting with nausea, Cocaine use Condition: Stable Scripts Dicyclomine HCl (Bentyl) 20 Mg Tab 1 TAB PO BID for irritable bowel symptoms for 10 Days, #20 TAB 0 Refills Prov: CUATE MARTINEZ MD 04/22/24 Referrals: SELF,REFERRAL (PCP) CUATE MARTINEZ MD Apr 22, 2024 10:39
[2024-04-22 10:51] LABS: ALBUMIN 3.6 g/dL (3.5-5.0); BILIRUBIN,DIRECT 0.2 mg/dL (0.0-0.3); BILIRUBIN,TOTAL 0.9 mg/dL (0.2-1.0); CREATININE 0.9 mg/dL (0.5-1.0); TOTAL PROTEIN, SERUM 6.8 g/dL (6.0-8.3)
[2024-04-22 10:57] LABS: POTASSIUM 2.9 mmol/L (3.5-5.1)
[2024-04-22] MEDS: PoTASSium chloRIDE 20MEQ ER 20 MEQ ERTAB PO ONE (11:36)
[2024-04-22] MEDS: cefTRIAXone 1G VIAL IVPB ONE (12:02)
[2024-04-22] MEDS ORDERED: LIDOCAINE HCL 2% VISCOUS 15 ML UDCUP PO ONE (12:30)
[2024-04-22] MEDS ORDERED: MAG/ALUM/SIMETH 30 ML UDCUP PO ONE (12:30)
[2024-04-22] MEDS ORDERED: DICYCLOMINE HCL 10 MG/5 ML ML PO ONE (12:30)
[2024-04-22] MEDS ORDERED: LIDO 2% VISC 30ML+MAG/AL/SIMETH 30ML+DICYCLOMINE 20MG 10ML PO PRN (13:00)
[2024-04-22] MEDS ORDERED: COMPOUND PO MISCELLANEOUS 1 EACH MISC MISC PRN (13:00)
[2024-04-22] MEDS: MAG/ALUM/SIMETH 30 ML UDCUP PO ONE (13:04)
[2024-04-22] MEDS: HALOPERIDOL INJ 5 MG/ML VIAL IV ONE (13:05)
[2024-04-22] MEDS ORDERED: DICY20TA2 PO (13:59)
[2024-04-22 14:06] VITALS: BP 165/97; PULSE 60; RESP 18; TEMP 97.5; O2SAT 99
== END 2024-04-22 14:29 | disposition home or self-care (01) ==
LOC: EDH 09:45
DX: F12.10 Cannabis abuse, uncomplicated (principal); F14.90 Cocaine use, unspecified, uncomplicated; R11.2 Nausea with vomiting, unspecified
CPT/HCPCS: 99284; 96374; 96361; 96375; 82550; 80076; 80048; 80305; 84703; 83690; 85025; 87086 ×2; 87186; 36415; 96376; 93005; 81001; 96372; J2550; J1630 ×2; J0696

== ENCOUNTER 2024-06-07 06:17 | Emergency (ER) | payer SELFPAY ==
[~2024-06-07] VITALS: Ht 160 cm; Wt 96.6 kg
[~2024-06-07 06:17] MED LIST changes: +DICY20TA2 PO
--- NOTE | 2024-06-07 06:31 | ERN ---
General Chief Complaint: Abdominal Pain Stated Complaint: RUQ PAIN RADIATES TO BACK WITH VOMITING Time Seen by MD: 06:29 Source: patient History of Present Illness Initial Comments 33-year-old female with a history of cirrhosis and gallstones comes in with right upper quadrant pain 10/10 associated with emesis x1. She has no other past medical history. She occasionally drinks alcohol and daily THC use. Timing/Duration: 24 hours Allergies: Coded Allergies: No Known Drug Allergies (Unverified Allergy, Unknown, 06/23/23) Home Meds Active Scripts Dicyclomine HCl (Bentyl) 20 Mg Tab, 1 TAB PO BID for irritable bowel symptoms for 10 Days, #20 TAB 0 Refills Prov:CUATE MARTINEZ MD 04/22/24 Cephalexin Monohydrate (Keflex) 500 Mg Cap, 500 MG PO BID, #4 CAP 0 Refills Prov:GURMEET LOERA AGPCNP 06/27/23 Reported Medications Famotidine (Famotidine) 20 Mg Tablet, 20 MG PO BID, TAB 06/24/23 Dicyclomine HCl (Dicyclomine HCl) 20 Mg Tablet, 20 MG PO QID for ABD PAIN, TAB 06/24/23 Ondansetron HCl/Pf (Ondansetron HCl 4 mg/2 ml Vial) 4 Mg/2 Ml Vial, 4 MG IJ Q8 for NAUSEA, VIAL 06/24/23 Past Medical History Past Medical History: Gallstones, Liver Disease Medical History Other: CIRRHOSIS Past Surgical History: None Family History Family History: Negative Social History Social History: Negative, Lives with family Constitutional: (-) chills, (-) diaphoresis, (-) fever, (-) malaise, (-) weakness, (-) other documentation EENTM: (-) eye pain, (-) blurred vision, (-) tearing, (-) double vision, (-) ear pain, (-) ear discharge, (-) nose pain, (-) nose congestion, (-) throat pain, (-) Throat swelling, (-) mouth pain, (-) tooth pain, (-) mouth swelling, (-) other documentation Respiratory: (-) cough, (-) orthopnea, (-) short of breath, (-) stridor, (-) wheezing, (-) other documentation Cardiovascular: (-) chest pain, (-) edema, (-) palpitations, (-) syncope, (-) dyspnea on exertion, (-) other documentation Gastrointestinal/Abdominal: (+) nausea, (+) vomiting Genitourinary: (-) vaginal discharge, (-) vaginal bleeding, (-) dysuria, (-) frequency, (-) hematuria, (-) pain, (-) other documentation Musculoskeletal: (+) back pain Skin: (-) laceration, (-) contusion, (-) abrasion, (-) abscess, (-) rash, (-) change in color, (-) change in hair, (-) change in nails, (-) diaphoresis, (-) d ryness, (-) other documentation Neuro: (-) altered mental status, (-) headache, (-) syncope, (-) paralysis, (-) numbness, (-) seizure, (-) pre-existing deficit, (-) tremors, (-) weakness, (-) dizziness, (-) slurred speech, (-) vertigo, (-) other documentation Physical Exam General Appearance: (+) mild distress Orientation: (+) alert Head/Face Trauma: No Eye: bilateral eye normal inspection, bilateral eye PERRL, bilateral eye EOMI Ear, Nose, Throat: (+) hearing grossly normal, (+) normal ENT inspection Neck: (+) normal inspection, (+) supple, (+) no JVD Respiratory: (+) chest non-tender, (+) lungs clear, (+) well ventilated Heart: (+) regular, (+) no gallop Vascular: (+) no edema, (+) normal peripheral pulse, (+) no JVD Gastrointestinal: (+) soft, (+) bowel sound present, (+) hunter's sign Extremities: (+) normal range of motion Results Laboratory and Microbiology Lab and Micro Result Laboratory Tests Test 06/07/24 06:36 White Blood Count 10.2 K/uL (4.8-10.8) Red Blood Count 3.92 MIL/uL (4.00-5.50) L Hemoglobin 12.1 g/dL (12.0-16.0) Hematocrit 35.3 % (36-48) L Mean Corpuscular Volume 90.1 fL (79-99) Mean Corpuscular Hemoglobin 30.9 pg (27.0-33.0) Mean Corpuscular Hemoglobin Concent 34.3 g/dL (32.0-36.0) Red Cell Distribution Width 12.3 % (11.0-15.5) Platelet Count 256 K/uL (130-400) Mean Platelet Volume 8.6 fL (7.5-10.5) Immature Granulocyte % (Auto) 0.5 % (0-1) Neutrophils (%) (Auto) 70.0 % (40.0-77.0) Lymphocytes (%) (Auto) 20.8 % (21.0-51.0) L Monocytes (%) (Auto) 5.7 % (3.0-13.0) Eosinophils (%) (Auto) 2.3 % (0.0-8.0) Basophils (%) (Auto) 0.7 % (0.0-5.0) Neutrophils # (Auto) 7.1 K/uL (1.8-7.7) Lymphocytes # (Auto) 2.1 K/uL (1.0-4.8) Monocytes # (Auto) 0.6 K/uL (0.1-1.0) Eosinophils # (Auto) 0.23 K/uL (0.00-0.70) Basophils # (Auto) 0.07 K/uL (0.00-0.20) Absolute Immature Granulocyte (auto 0.05 K/uL (0-1) Nucleated Red Blood Cells 0.0 % (0.0-0.19) Sodium Level 144 mmol/L (136-145) Potassium Level 3.7 mmol/L (3.5-5.1) Chloride Level 108 mmol/L (101-111) Carbon Dioxide Level 25 mmol/L (21-32) Blood Urea Nitrogen 7 mg/dL (7-18) Creatinine 0.8 mg/dL (0.5-1.0) Glomerular Filtration Rate Calc 98 mL/min (>90) Random Glucose 114 mg/dL (70-105) H Total Calcium 8.6 mg/dL (8.5-10.1) Total Bilirubin 0.3 mg/dL (0.2-1.0) Direct Bilirubin 0.1 mg/dL (0.0-0.3) Aspartate Amino Transf (AST/SGOT) 12 U/L (10-37) Alanine Aminotransferase (ALT/SGPT) 16 U/L (12-78) Alkaline Phosphatase 50 U/L (50-136) Total Protein 6.1 g/dL (6.0-8.3) Albumin 3.2 g/dL (3.5-5.0) L Lipase 45 U/L (16-77) Serum Test, Qualitative NEGATIVE (NEGATIVE) Labs Reviewed?: Yes EKG/XRAY/US/CT/MRI Ultrasound Comment Ultrasound right upper [id number] [place] [address] IMAGING REPORT Signed PATIENT: ROSENDO ALONZO MR#: [id number] : 1990 SEX: F AGE: 33 LOCATION: [facility] ORDER 2 STATUS: [facility] REPORT#: [id number] SERVICE 1 REASON: RUQ pain ORDERING PHYSICIAN: ELENA MAHMOOD MD PROCEDURE: ABDRUQLTD - US ABDOMINAL RUQ\LTD ULTRASOUND ABDOMEN LIMITED INDICATION: Right upper abdominal pain COMPARISON: None FINDINGS: The liver is enlarged and increased in echogenicity; no focal lesion demonstrated. Main portal vein is patent, and normal direction of vascular flow demonstrated. Liver length is measured at 19.0 cm. The common bile duct diameter measures 4.0 mm. Gallbladder is distended, and 2.0 cm echogenic shadowing gallstone demonstrated without associated pericholecystic fluid. No sonographic Hunter's sign elicited by the ultrasound alcohol still operator. Wall thickness measures 2.0 mm. Visible portions of the pancreas appear normal. The right kidney measures 9.7 x 3.7 x 4.4 cm,and is normal in echogenicity, without evidence for hydronephrosis.No shadowing stones demonstrated. No free fluid demonstrated. IMPRESSION: Cholelithiasis and gallbladder distention without cholecystitis. Findings suggesting hepatomegaly and hepatic steatosis or other underlying hepatocellular disease process. DICTATED BY: FREDDIE RYAN MD DATE: 06/07/24808 ELECTRONICALLY SIGNED BY: FREDDIE RYAN MD DATE: 06/07/24813 CT Scan Comment IMAGING REPORT Signed PATIENT: ROSENDO ALONZO MR#: [id number] : 1990 SEX: F AGE: 33 LOCATION: ED ORDER 1 STATUS: REG ER REPORT#: [id number] SERVICE 075 REASON: ABD PAIN ORDERING PHYSICIAN: KRISTINA MUÑOZ MD PROCEDURE: ABD PEL WO - CT ABDOMEN/PELVIS W/O CONTRAST Exam Type: CT ABDOMEN/PELVIS W/O CONTRAST Clinical Information: ABD PAIN Comparison: None CT Dose Index (CTDI): 10.20 mGy Dose Length Product (DLP): 530.00 total mGy-cm PROTOCOL: Routine noncontrast helical scanning of the abdomen and pelvis was performed at 5mm collimation. Findings: No evidence of nephro or ureterolithiasis is found. No hydronephrosis or ureteral dilatation is seen. The lung bases are clear. The stomach is unremarkable. It shows no wall thickening. No gross ulceration is seen. It is not overly distended. There are no surrounding inflammatory changes. No wall lesions are identified to suggest cancer. The spleen is unremarkable. It is not enlarged. The pancreas shows normal anatomy. It is not fatty replaced. It shows no lesions. The pancreatic duct is not dilated. There is evidence of cholelithiasis. No evidence of acute or chronic inflammation is seen. The adrenal glands are unremarkable. There is no enlargement. No lesions are noted. The liver is unremarkable. It shows no focal masses. The appendix is unremarkable. It shows no evidence of inflammation. No appendicolith is seen. The small bowel is unremarkable. There is no evidence of dilatation to suggest obstruction. No evidence of adynamic ileus is seen. There is no small bowel wall thickening to suggest enteritis. The colon is unremarkable. The urinary bladder is unremarkable. There is no wall thickening to suggest tumor or inflammation. There are no intraluminal calculi. There are no diverticula. There is no evidence of chronic bladder outlet obstruction. There is no evidence of urinary bladder distention to suggest urinary retention. The other pelvic structures are unremarkable. The bony and vascular structures are unremarkable for the patient's age. IMPRESSION: Cholelithiasis. This study was performed using dose reduction techniques to include automated exposure control and/or adjustment of the mA and/or kV according to patient size. DICTATED BY: OLIVER KRISHNAMURTHY MD DATE: 06/07/24848 ELECTRONICALLY SIGNED BY: OLIVER KRISHNAMURTHY MD DATE: 06/07/24851 MDM Patient has Hunter's sign consistent with gallbladder disease. We will order a right upper quadrant ultrasound also to get a look at her liver. I will order the usual labs and give her some fluid. MDM: Differential diagnosis: Biliary colic, cholelithiasis Rationale: Tests considered and ordered secondary to shared decision making include: Previous outside records reviewed: Old ER visits. Patient is a 33-year-old female coming in to be evaluated for abdominal pain per ultrasound CT confirm cholelithiasis without cholecystitis. Patient will be discharged in stable condition I advised her appropriate follow up with surgeon in his PCP for ongoing evaluation and management patient will discharged in stable condition. ED Course Orders Procedure Category Date Status Time Cbc With Differential LAB 06/07/24 Complete 06:24 Basic Metabolic Panel LAB 06/07/24 Complete 06:24 Hepatic Function Panel LAB 06/07/24 Complete 06:24 Lipase LAB 06/07/24 Complete 06:24 Testing, LAB 06/07/24 Complete Serum Hcg 06:24 Us Abdominal Ruq\Ltd US 06/07/24 Resulted 06:32 Lactated Ringers PHA 06/07/24 Complete 1000ml (Lactated 06:32 Ct Abdomen/Pelvis W/O CT 06/07/24 Resulted Contrast 07:51 Ketorolac PHA 06/07/24 Complete Tromethamine 30mg/Ml 08:00 Current Medications Medications (Trade) Dose Ordered Sig/Mirza Route PRN Reason Start Time Stop Time Status Last Admin Dose Admin Ketorolac Tromethamine (toRADol) 30 mg ONCE ONCE IVP 06/07/24 08:00 06/07/24 08:01 DC 06/07/24 08:04 Lactated Ringer's (Lactated Ringers 1000ml) 1,000 ml BOLUS STAT IV 06/07/24 06:32 06/07/24 06:34 DC 06/07/24 06:43 Vital Signs Date Time Temp Pulse Resp B/P (MAP) Pulse Ox O2 Delivery O2 Flow Rate FiO2 06/07/24 06:38 62 18 123/46 100 Room Air* 0 21 06/07/24 06:19 99.0 76 16 111/65 99 Room Air 0 DX & DISP Disposition: Discharge Departure Impression: Primary Impression: Biliary colic Condition: Stable Additional Instructions: FOLLOW-UP WITH PRIMARY CARE PROVIDER IN 1 TO 2 DAYS. TAKE MEDICATIONS DIRECTED HERE IN THE EMERGENCY ROOM. OKAY TO CONTINUE HOME MEDICATIONS UNLESS OTHERWISE DISCUSSED DURING YOUR VISIT IN THE EMERGENCY ROOM TODAY. RETURN TO YOUR NEAREST EMERGENCY ROOM IF SYMPTOMS WORSEN OR IF THERE IS NO IMPROVEMENT. CALL 911 IF YOU NEED IMMEDIATE ASSISTANCE. TAKE TYLENOL [id number] NEEDED AND IF NO CONTRAINDICATIONS ARE PRESENT. INCREASE ORAL HYDRATION. A WOUND CULTURE OR URINE CULTURE WAS ORDERED HERE IN THE EMERGENCY ROOM DEPARTMENT PLEASE FOLLOW-UP WITH PRIMARY CARE PROVIDER AND ADVISE THEM TO GET REPEAT PORTS FROM OUR FACILITY. IF YOU HAD ANY YONATAN WRAP/SPLINTS THAT WERE APPLIED HERE, PLEASE DO NOT REMOVE THEM UNTIL YOU SEE YOUR PRIMARY CARE OR SPECIALTY. Referrals: Referrals: RAE GRIGGS PA-C (PCP) ABIEL TURNER MD Time of Disposition: 09:03 ELENA MAHMOOD MD Jun 07, 2024 06:31 KRISTINA MUÑOZ MD Jun 07, 2024 09:04
[2024-06-07] MEDS: LACTATED RINGERS 1000ML IV STA (06:43)
[2024-06-07 06:50] LABS: BASOPHILS # (AUTO) 0.07 K/uL (0.00-0.20); BASOPHILS % (AUTO) 0.7 % (0.0-5.0); EOSINOPHILS # (AUTO) 0.23 K/uL (0.00-0.70); EOSINOPHILS % (AUTO) 2.3 % (0.0-8.0); HEMATOCRIT 35.3 % (36-48); IMMATURE GRANULOCYTE ABSOLUTE 0.05 K/uL (0-1); LYMPHOCYTES # (AUTO) 2.1 K/uL (1.0-4.8); LYMPHOCYTES % (AUTO) 20.8 % (21.0-51.0); MEAN CORPUSCULAR HEMOGLOBIN 30.9 pg (27.0-33.0); MEAN CORPUSCULAR HGB CONC 34.3 g/dL (32.0-36.0); MEAN CORPUSCULAR VOLUME 90.1 fL (79-99); MONOCYTES # (AUTO) 0.6 K/uL (0.1-1.0); MONOCYTES % (AUTO) 5.7 % (3.0-13.0); NEUTROPHILS # (AUTO) 7.1 K/uL (1.8-7.7); PLATELET COUNT (AUTO) 256 K/uL (130-400); RED BLOOD CELL COUNT(AUTO) 3.92 MIL/uL (4.00-5.50); RED CELL DISTRIBUTION WIDTH 12.3 % (11.0-15.5); WHITE BLOOD COUNT (AUTO) 10.2 K/uL (4.8-10.8)
[2024-06-07 07:06] LABS: ALBUMIN 3.2 g/dL (3.5-5.0); BILIRUBIN,DIRECT 0.1 mg/dL (0.0-0.3); BILIRUBIN,TOTAL 0.3 mg/dL (0.2-1.0); CREATININE 0.8 mg/dL (0.5-1.0); POTASSIUM 3.7 mmol/L (3.5-5.1); TOTAL PROTEIN, SERUM 6.1 g/dL (6.0-8.3)
--- NOTE | 2024-06-07 07:20 | NUR ---
REPORT RECEIVED FROM CHRIS CALVERT
[2024-06-07] MEDS: ketOROlac 30MG VIAL (30MG/ML) IVP ONE (08:04)
--- NOTE | 2024-06-07 08:14 | HMCIMG ---
ULTRASOUND ABDOMEN LIMITED INDICATION: Right upper abdominal pain COMPARISON: None FINDINGS: The liver is enlarged and increased in echogenicity; no focal lesion demonstrated. Main portal vein is patent, and normal direction of vascular flow demonstrated. Liver length is measured at 19.0 cm. The common bile duct diameter measures 4.0 mm. Gallbladder is distended, and 2.0 cm echogenic shadowing gallstone demonstrated without associated pericholecystic fluid. No sonographic Hunter's sign elicited by the ultrasound electric well logging operator. Wall thickness measures 2.0 mm. Visible portions of the pancreas appear normal. The right kidney measures 9.7 x 3.7 x 4.4 cm,and is normal in echogenicity, without evidence for hydronephrosis.No shadowing stones demonstrated. No free fluid demonstrated. IMPRESSION: Cholelithiasis and gallbladder distention without cholecystitis. Findings suggesting hepatomegaly and hepatic steatosis or other underlying hepatocellular disease process.
--- NOTE | 2024-06-07 08:40 | NUR ---
PT CURRENTLY IN CT SCAN
--- NOTE | 2024-06-07 08:52 | HMCIMG ---
Exam Type: CT ABDOMEN/PELVIS W/O CONTRAST Clinical Information: ABD PAIN Comparison: None CT Dose Index (CTDI): 10.20 mGy Dose Length Product (DLP): 530.00 total mGy-cm PROTOCOL: Routine noncontrast helical scanning of the abdomen and pelvis was performed at 5mm collimation. Findings: No evidence of nephro or ureterolithiasis is found. No hydronephrosis or ureteral dilatation is seen. The lung bases are clear. The stomach is unremarkable. It shows no wall thickening. No gross ulceration is seen. It is not overly distended. There are no surrounding inflammatory changes. No wall lesions are identified to suggest cancer. The spleen is unremarkable. It is not enlarged. The pancreas shows normal anatomy. It is not fatty replaced. It shows no lesions. The pancreatic duct is not dilated. There is evidence of cholelithiasis. No evidence of acute or chronic inflammation is seen. The adrenal glands are unremarkable. There is no enlargement. No lesions are noted. The liver is unremarkable. It shows no focal masses. The appendix is unremarkable. It shows no evidence of inflammation. No appendicolith is seen. The small bowel is unremarkable. There is no evidence of dilatation to suggest obstruction. No evidence of adynamic ileus is seen. There is no small bowel wall thickening to suggest enteritis. The colon is unremarkable. The urinary bladder is unremarkable. There is no wall thickening to suggest tumor or inflammation. There are no intraluminal calculi. There are no diverticula. There is no evidence of chronic bladder outlet obstruction. There is no evidence of urinary bladder distention to suggest urinary retention. The other pelvic structures are unremarkable. The bony and vascular structures are unremarkable for the patient's age. IMPRESSION: Cholelithiasis. This study was performed using dose reduction techniques to include automated exposure control and/or adjustment of the mA and/or kV according to patient size.
[2024-06-07 09:25] VITALS: BP 113/71; PULSE 68; RESP 19; TEMP 96.5; O2SAT 100
== END 2024-06-07 09:27 | disposition home or self-care (01) ==
LOC: EDH 06:17 → EDBD 06:17 → EDH 09:27
DX: K80.50 Calculus of bile duct without cholangitis or cholecystitis without obstruction (principal); Z79.899 Other long term (current) drug therapy
CPT/HCPCS: 99285; 74176; 96374; 76705; 80076; 80048; 84703; 83690; 85025; 36415; J1885; J7120